=== PATIENT | male | born 1970 | race Caucasian/White ===

== ENCOUNTER 2016-08-25 14:54 | Emergency (ER) | payer BC, OTHER ==
[2016-08-25 15:27] LABS: HEMOGLOBIN 13.5 gm/dl (14.0-17.5); RED BLOOD COUNT 4.55 M/UL (4.20-5.50)
[2016-08-25 15:42] LABS: BUN/CREATININE RATIO 9 (0-10)
== END 2016-08-25 19:20 | disposition home or self-care (01) ==
LOC: ER1 14:54
PROVIDERS: Family Medicine
DX: I26.99 Other pulmonary embolism without acute cor pulmonale (principal); J44.9 Chronic obstructive pulmonary disease, unspecified; J90 Pleural effusion, not elsewhere classified; R91.8 Other nonspecific abnormal finding of lung field; C34.90 Malignant neoplasm of unspecified part of unspecified bronchus or lung; F17.200 Nicotine dependence, unspecified, uncomplicated; Z79.01 Long term (current) use of anticoagulants; Z79.891 Long term (current) use of opiate analgesic; Z99.81 Dependence on supplemental oxygen
CPT/HCPCS: 36415; 36600; 71010; 80053; 82550; 82553; 82803; 83874; 84484; 85025; 85379; 93005; 94664; 96361; 96374; 96375; 99284; J2270; J2405; J7050; Q9963